=== PATIENT | female | born 1995 | race Caucasian/White ===

== ENCOUNTER 2016-04-25 12:26 | Observation (INO) | payer BC ==
[~2016-04-25] VITALS: Ht 157.5 cm; Wt 47.7 kg
[2016-04-25] MEDS ORDERED: OXYCODONE HCL IR 5 MG TAB (IMMEDIATE RELEASE) PO STA (13:52)
[2016-04-25] MEDS ORDERED: BCPILLS PO (14:00)
[2016-04-25] MEDS ORDERED: AMPH25CA PO (14:00)
--- NOTE | 2016-04-25 14:34 | DIAGNOSTIC IMAGING REPORT ---
SACRUM AND COCCYX 2 VIEWS CLINICAL HISTORY: Low back pain. No history of trauma. FINDINGS: AP and lateral views of the sacrum and coccyx are obtained. No prior studies are available for comparison at the time of dictation. The skeletal structures are well mineralized. No sacral or coccygeal fracture is seen. The sacroiliac joints are normal in appearance. The visualized bony pelvis appears intact. There is a nonobstructed abdominal bowel gas pattern. IMPRESSION: Unremarkable radiographic assessment of the sacrum and coccyx. Electronically signed by: Bear Mccrary M.D. 04/25/2016 2:33 PM Dictated Date/Time: 04/25/2016 2:32 PM
--- NOTE | 2016-04-25 14:35 | DIAGNOSTIC IMAGING REPORT ---
LUMBAR SPINE 5 VIEWS CLINICAL HISTORY: Low back pain. No trauma. FINDINGS: 5 views of the lumbar spine are obtained. No prior studies are available for comparison at the time of dictation. The skeletal structures are well mineralized. There is no radiographic evidence of fracture or malalignment. Vertebral body height and alignment are maintained. The transverse and spinous processes are intact. There is no evidence of spondylolysis. The intervertebral disc spaces are well-maintained. The visualized bony pelvis appears intact. There is a nonobstructed abdominal bowel gas pattern. IMPRESSION: Unremarkable radiographic evaluation of the lumbosacral spine. Electronically signed by: Bear Mccrary M.D. 04/25/2016 2:33 PM Dictated Date/Time: 04/25/2016 2:33 PM
[2016-04-25 14:37] LABS: URINE APPEARANCE CLEAR (CLEAR); URINE BILIRUBIN NEG (NEG); URINE COLOR DK YELLOW; URINE NITRITE NEG (NEG); URINE PH 5.5 (4.5-7.5); URINE SPECIFIC GRAVITY 1.028 (1.000-1.030); UROBILINOGEN NEG (NEG)
--- NOTE | 2016-04-25 14:38 | DIAGNOSTIC IMAGING REPORT ---
CHEST 2 VIEWS ROUTINE CLINICAL HISTORY: Fever and cough COMPARISON STUDY: No previous studies for comparison. FINDINGS: The cardiac and mediastinal contours are normal. There is no evidence of focal pulmonary consolidation. There is no evidence of failure. No pleural effusions are visualized.[ IMPRESSION: No active disease in the chest. Electronically signed by: Avni Mccray M.D. 04/25/2016 2:37 PM Dictated Date/Time: 04/25/2016 2:32 PM
[2016-04-25 14:47] LABS: MANUAL MICROSCOPIC REQUIRED? NO; REVIEW REQ? NO
[2016-04-25] MEDS ORDERED: KETOROLAC TROMETHAMINE 30 MG/ML VIAL IV STA (14:49)
[2016-04-25 15:20] LABS: BASO % 0.1 %; BASO ABS # 0.02 K/uL (0-0.2); COMPLETE YES; EOS % 0.4 %; HEMATOCRIT 38.8 % (37-47); IG% 0.2 %; LYMPH ABS # 2.25 K/uL (1.2-3.4); MEAN CELL VOLUME 91.9 fL (80-100); MEAN CORPUSCULAR HEMOGLOBIN 32.9 pg (25-34); MEAN CORPUSCULAR HGB CONC 35.8 g/dl (32-36); MEAN PLATELET VOLUME 9.3 fL (7.4-10.4); MONO % 6.6 %; NEUT % 81.7 %; PLATELET COUNT 297 K/uL (130-400); RED BLOOD COUNT 4.22 M/uL (4.2-5.4)
[2016-04-25] MEDS ORDERED: MoRPHine SULFATE 2 MG/ML CARP IV STA (15:30)
[2016-04-25] MEDS ORDERED: ONDANSETRON INJ 2 MG/ML 2 ML VIAL IV STA (15:30)
[2016-04-25] MEDS ORDERED: GUAIFENESIN SUGAR FREE 100 MG/5 ML UDC PO STA (15:30)
[2016-04-25 15:54] LABS: CALCIUM 8.9 mg/dl (8.5-10.1); POTASSIUM 3.8 mmol/L (3.5-5.1)
[2016-04-25 15:57] LABS: BUN/CREATININE RATIO 13.9 (10-20); CREATININE 0.69 mg/dl (0.60-1.20)
[2016-04-25 16:00] LABS: C-REACTIVE PROTEIN 6.48 mg/dl (0-0.29)
--- NOTE | 2016-04-25 18:29 | EMERGENCY ROOM VISIT NOTE ---
History Report prepared by Abram: Pepper Ricks Under the Supervision of: Dr. Bobby Brothers M.D. First contact with patient: 13:39 Chief Complaint: BACK PAIN Stated Complaint: SEVERE PAIN IN BACK NEAR TAILBONE History of Present Illness The patient is a 21 year old female who presents to the Emergency Room with complaints of persistent, worsening right lower back pain that began 2-3 days ago. She currently rates her discomfort as an 8/10 in severity describing it as a sharp pain. The patient states that for the past six weeks she has been battling bronchitis. She states that she has been on Augmentin and Prednisone for her cough, but states that her cough has persisted. The patient states that she finished both the antibiotic and steroids two weeks ago. She states that two-three days ago she developed pain to her lower back in the right tailbone area. The patient states that her pain has worsened with movement and coughing. She notes difficulty sleeping, because she cannot find a comfortable position. The patient denies any trauma or pain, numbness, or weakness down her legs. She denies any urinary symptoms, urinary incontinence, abdominal pain , chance of , abnormal vaginal discharge or bleeding, fever, or shortness of breath. The patient denies any history of back problems. She states that she took a muscle relaxer today without relief of her symptoms. The patient notes increased coughing at night. Source of History: patient Onset: 2-3 days ago Position: back (lower, right) Symptom Intensity: 8/10 Quality: sharp Timing: worsening, other (persistent) Associated Symptoms: + cough, No abdominal pain, No fevers, No numbness, No urinary symptoms, No weakness Note: Associated Symptoms: difficulty sleeping Review of Systems See HPI for pertinent positives & negatives. A total of 10 systems reviewed and were otherwise negative. Family History No pertinent family history stated. Social History Smoking Status: Never Smoker Marital Status: single Occupation Status: [employer] student Current/Historical Medications Scheduled Amphetamine-Dextroamphetamine 25MG (Adderall Xr 25MG), 25 MG PO DAILY Control Pills ( Control Pills), 1 TAB PO DAILY Allergies Coded Allergies: No Known Allergies (Unverified , 04/25/16) Physical Exam Vital Signs Date Time Temp Pulse Resp B/P Pulse Ox O2 Delivery O2 Flow Rate FiO2 04/25/16 16:46 99 20 127/77 97 Room Air 04/25/16 15:54 112 20 117/77 100 Room Air 04/25/16 14:32 114 18 126/74 97 Room Air 04/25/16 12:39 36.9 120 18 115/69 98 Room Air Physical Exam Constitutional: Vital signs reviewed. Pulse ox 98% on room air. Eyes: Pupils are equal round reactive to light. Conjunctiva are noninjected. ENT: Pharynx is clear without erythema or exudate. Mucous membranes are moist. Neck supple without meningeal signs. Respiratory: Clear to auscultation bilaterally. Breath sounds are equal bilaterally. Cardiovascular: Tachycardic. Heart rate 112. GI: Soft, nondistended and nontender. Bowel sounds are present. Musculoskeletal: Tenderness over right SI joint without any swelling, erythema, or increased warmth. No tenderness to the midline lumbar spine. No peripheral edema. No CVA tenderness. Integumentary: No cyanosis. Neurological: The patient is awake and alert. No focal deficits. Motor and sensation are intact throughout the lower extremities. Positive straight leg raise on the right side. Psychiatric: Normal affect. Medical Decision & Procedures ER Provider Diagnostic Interpretation: Other radiology results as stated below per my review and the radiologist's interpretation: X-ray results as stated below per interpretation by me and the radiologist: SACRUM AND COCCYX 2 VIEWS CLINICAL HISTORY: Low back pain. No history of trauma. FINDINGS: AP and lateral views of the sacrum and coccyx are obtained. No prior studies are available for comparison at the time of dictation. The skeletal structures are well mineralized. No sacral or coccygeal fracture is seen. The sacroiliac joints are normal in appearance. The visualized bony pelvis appears intact. There is a nonobstructed abdominal bowel gas pattern. IMPRESSION: Unremarkable radiographic assessment of the sacrum and coccyx. Electronically signed by: Bear Mccrary M.D. 04/25/2016 2:33 PM Dictated Date/Time: 04/25/2016 2:32 PM LUMBAR SPINE 5 VIEWS CLINICAL HISTORY: Low back pain. No trauma. FINDINGS: 5 views of the lumbar spine are obtained. No prior studies are available for comparison at the time of dictation. The skeletal structures are well mineralized. There is no radiographic evidence of fracture or malalignment. Vertebral body height and alignment are maintained. The transverse and spinous processes are intact. There is no evidence of spondylolysis. The intervertebral disc spaces are well-maintained. The visualized bony pelvis appears intact. There is a nonobstructed abdominal bowel gas pattern. IMPRESSION: Unremarkable radiographic evaluation of the lumbosacral spine. Electronically signed by: Bear Mccrary M.D. 04/25/2016 2:33 PM Dictated Date/Time: 04/25/2016 2:33 PM CHEST 2 VIEWS ROUTINE CLINICAL HISTORY: Fever and cough COMPARISON STUDY: No previous studies for comparison. FINDINGS: The cardiac and mediastinal contours are normal. There is no evidence of focal pulmonary consolidation. There is no evidence of failure. No pleural effusions are visualized.[ IMPRESSION: No active disease in the chest. Electronically signed by: Avni Mccray M.D. 04/25/2016 2:37 PM Dictated Date/Time: 04/25/2016 2:32 PM Laboratory Results 04/25/16 15:05 Red Blood Count 4.22, Mean Corpuscular Volume 91.9, Mean Corpuscular Hemoglobin 32.9, Mean Corpuscular Hemoglobin Concent 35.8, Mean Platelet Volume 9.3, Neutrophils (%) (Auto) 81.7, Lymphocytes (%) (Auto) 11.0, Monocytes (%) (Auto) 6.6, Eosinophils (%) (Auto) 0.4, Basophils (%) (Auto) 0.1, Neutrophils # (Auto) 16.74, Lymphocytes # (Auto) 2.25, Monocytes # (Auto) 1.35, Eosinophils # (Auto) 0.09, Basophils # (Auto) 0.02 04/25/16 15:05 Test 04/25/16 13:50 04/25/16 15:05 Urine Color DK YELLOW Urine Appearance CLEAR (CLEAR) Urine pH 5.5 (4.5-7.5) Urine Specific [place] 1.028 (1.000-1.030) Urine Protein NEG (NEG) Urine Glucose (UA) NEG (NEG) Urine Ketones TRACE (NEG) Urine Occult Blood NEG (NEG) Urine Nitrite NEG (NEG) Urine Bilirubin NEG (NEG) Urine Urobilinogen NEG (NEG) Urine Leukocyte Esterase NEG (NEG) Urine Test NEG (NEG) White Blood Count 20.50 K/uL (4.8-10.8) Red Blood Count 4.22 M/uL (4.2-5.4) Hemoglobin 13.9 g/dL (12.0-16.0) Hematocrit 38.8 % (37-47) Mean Corpuscular Volume 91.9 fL (80-100) Mean Corpuscular Hemoglobin 32.9 pg (25-34) Mean Corpuscular Hemoglobin Concent 35.8 g/dl (32-36) Platelet Count 297 K/uL (130-400) Mean Platelet Volume 9.3 fL (7.4-10.4) Neutrophils (%) (Auto) 81.7 % Lymphocytes (%) (Auto) 11.0 % Monocytes (%) (Auto) 6.6 % Eosinophils (%) (Auto) 0.4 % Basophils (%) (Auto) 0.1 % Neutrophils # (Auto) 16.74 K/uL (1.4-6.5) Lymphocytes # (Auto) 2.25 K/uL (1.2-3.4) Monocytes # (Auto) 1.35 K/uL (0.11-0.59) Eosinophils # (Auto) 0.09 K/uL (0-0.5) Basophils # (Auto) 0.02 K/uL (0-0.2) RDW Standard Deviation 42.9 fL (36.4-46.3) RDW Coefficient of Variation 12.7 % (11.5-14.5) Immature Granulocyte % (Auto) 0.2 % Immature Granulocyte # (Auto) 0.05 K/uL (0.00-0.02) Anion Gap 9.0 mmol/L (3-11) Est Creatinine Clear Calc Drug Dose 96.9 ml/min Estimated GFR () 144.2 Estimated GFR (Non- 124.4 BUN/Creatinine Ratio 13.9 (10-20) Calcium Level 8.9 mg/dl (8.5-10.1) C-Reactive Protein 6.48 mg/dl (0-0.29) Laboratory results as reviewed by me. Medications Administered Medications (Trade) Dose Ordered Sig/Simran Route Start Time Stop Time Status Last Admin Dose Admin Oxycodone HCl (Roxicodone Immediate Rel Tab) 5 mg NOW STAT PO 04/25/16 13:52 04/25/16 13:54 DC 04/25/16 13:59 5 MG Ketorolac Tromethamine (Toradol Inj) 15 mg NOW STAT IV 04/25/16 14:49 04/25/16 14:50 DC 04/25/16 15:05 15 MG Guaifenesin (Robitussin Sugar Free Syrup) 200 mg NOW STAT PO 04/25/16 15:30 04/25/16 15:33 DC 04/25/16 15:54 200 MG Morphine Sulfate (MoRPHine SULFATE INJ) 2 mg NOW STAT IV 04/25/16 15:30 04/25/16 15:33 DC 04/25/16 16:46 2 MG Ondansetron HCl (Zofran Inj) 4 mg NOW STAT IV 04/25/16 15:30 04/25/16 15:33 DC 04/25/16 16:46 4 MG ED Course 1342: The patient was evaluated in room C8. A complete history and physical exam was performed. 1352: Ordered Oxycodone HCl 5 mg PO. 1449: I reevaluated the patient and she is still having pain and is still tachycardic. Ordered Toradol Inj 15 mg IV. 1531: I reevaluated the patient and she is still having pain. She denies any history of IV drug use or ever being tested for HIV. The patient denies ever being sexually active without any barrier protection. She agrees to have an MRI. Medical Decision This is a 21-year-old female who presents with right low back pain. Differential diagnosis includes sacroiliitis, lumbar disc disease, radiculopathy , pathologic fracture, osteomyelitis, discitis. I did perform a limited focused review of portions of the patient's old chart on the electronic medical record. The patient has had no prior visits. I did evaluate the patient as noted above. The patient is presenting with right lower back pain for the past 2-3 days. She denies any injury. She is very tender over the right SI joint. She is neurologically intact and shows no signs of cauda equina syndrome. I initially treated her with oxycodone orally. A urine analysis and urine test were unremarkable. I did order and personally review the patient's chest x-ray, lumbar spine and sacrum x-rays as described above. There is no evidence of acute pathology. I did reassess the patient. She is still having significant pain and she remains tachycardic. Because the patient is tachycardic I did feel further workup was indicated. IV access was established. I did treat the patient with IV Toradol. I did order and review the patient's blood work as noted in the electronic medical record. Her white blood cell count is over 20,000. The patient denies any fevers. She denies any history of HIV or immunocompromise. She was on steroids but that was 2 weeks ago. She denies IV drug use. I did recommend MRI to rule out osteomyelitis or discitis. I did order an MRI of the lumbar spine and pelvis. The patient was given Robitussin to help with her cough. She was also given a small dose of morphine and Zofran IV prior to the MRI so she could stay still. The MRI is currently pending. The patient was signed out to Dr. Dorado. Impression Primary Impression: Low back pain Additional Impression: Leukocytosis Scribe Attestation The scribe's documentation has been prepared under my direct and personally reviewed by me in its entirety. I confirm that the note above accurately reflects all work, treatment, procedures, and medical decision making performed by me. Departure Information Dispostion Still a Patient Referrals No Doctor, Assigned (PCP) Patient Instructions My [facility] Problem Qualifiers
--- NOTE | 2016-04-25 19:00 | DIAGNOSTIC IMAGING REPORT ---
MRI pelvis/sacrum PELVIS COMBO CLINICAL HISTORY: right SI joint pain eval for osteo/abscess pain TECHNIQUE: Multi axial MRI acquisition COMPARISON STUDY: None FINDINGS: Normal study. Normal signal characteristics the osseous structures. Sacroiliac joints are symmetric. Sacral foramina are symmetric. No evidence for abnormal postcontrast enhancement. IMPRESSION: Normal study Electronically signed by: Andre Ortega M.D. 04/25/2016 6:59 PM Dictated Date/Time: 04/25/2016 6:56 PM
--- NOTE | 2016-04-25 19:05 | DIAGNOSTIC IMAGING REPORT ---
LUMBAR SPINE MRI WITH AND WITHOUT CONTRAST HISTORY: Right sacral pain right SI joint pain eval for osteo/abscess TECHNIQUE: Multiplanar multisequence MRI of the lumbar spine was performed both before and after the intravenous administration of contrast. COMPARISON: None. FINDINGS: For the purpose of the report the L5-S1 disc space will be located on axial image 27 of 30. Normal signal characteristics of the vertebral bodies, intervertebral discs, and paraspinal soft tissues L1-L2: No significant central canal or neural foraminal narrowing. L2-L3: No significant central canal or neural foraminal narrowing. L3-L4: No significant central canal or neural foraminal narrowing. L4-L5: No significant central canal or neural foraminal narrowing. L5-S1: No significant central canal or neural foraminal narrowing. IMPRESSION: Normal study Electronically signed by: Andre Ortega M.D. 04/25/2016 7:04 PM Dictated Date/Time: 04/25/2016 7:02 PM
[2016-04-25] MEDS ORDERED: SODIUM CHLORIDE 0.9% 500ML 500 ML IV STA (19:39)
[2016-04-25] MEDS ORDERED: SODIUM CHLORIDE 0.9% 1000ML 1,000 ML IV STA (19:39)
--- NOTE | 2016-04-25 19:51 | EMERGENCY ROOM VISIT NOTE ---
ED Visit Note First contact with patient: 18:29 I assumed care at the change of shift, MRIs of the pelvis and lumbar spine were pending. The MRIs have returned, no abscess or other pathology seen. The MRIs were essentially normal. The patient has a high white blood cell count. On exam, she is still tachycardic with a slight murmur. She's been sick for weeks. I do think a hospital stay is warranted, she has certainly failed outpatient treatment. I am somewhat concerned about endocarditis given her history and exam, I have ordered for blood cultures and a sedimentation rate. I have ordered for a Monospot. I did discuss the case with the on-call hospitalist. I talked to case management. I talked to the patient about her findings and results. The patient was ordered for IV saline and IV morphine. Diagnosis: Tachycardia. Right-sided back pain. Leukocytosis. Cardiac murmur.
[2016-04-25] MEDS: MoRPHine SULFATE 4 MG/ML 1 ML CARP\\VIAL IV PRN ×2 (20:19→21:58)
[2016-04-25] MEDS ORDERED: ONDANSETRON INJ 2 MG/ML 2 ML VIAL IV PRN (21:00)
[2016-04-25] MEDS ORDERED: ACETAMINOPHEN IV 100 ML IV PRN (21:00)
[2016-04-25] MEDS ORDERED: MoRPHine SULFATE 4 MG/ML 1 ML CARP\\VIAL IV PRN (21:00)
[2016-04-25] MEDS ORDERED: KETOROLAC TROMETHAMINE 30 MG/ML VIAL IV PRN (21:00)
[2016-04-25] MEDS ORDERED: ZOLPIDEM TARTRATE 5 MG TAB PO PRN (21:00)
[2016-04-25] MEDS ORDERED: MoRPHine SULFATE 2 MG/ML CARP IV PRN (21:00)
[2016-04-25] MEDS ORDERED: TRAMADOL HCL 50 MG TAB PO PRN ×2 (21:00)
[2016-04-25] MEDS ORDERED: LORAZEPAM 2 MG/ML 1 ML VIAL IV PRN (21:00)
[2016-04-25] MEDS ORDERED: ACETAMINOPHEN 325 MG TAB PO PRN (21:00)
[2016-04-25] MEDS ORDERED: DiphenhydrAMINE HCL 50 MG/ML VIAL IV PRN (21:00)
[2016-04-25] MEDS ORDERED: PROMETHAZINE HCL INJ 12.5 MG in SODIUM CHLORIDE 0.9% 50ML 50 ML IV PRN (21:00)
[2016-04-25] MEDS ORDERED: ACETAMINOPHEN IV PRN (21:15)
[2016-04-25] MEDS ORDERED: IV FLUIDS COMPLETED PRN (21:15)
[2016-04-25 22:01] VITALS: O2SAT 98
[2016-04-25] MEDS ORDERED: LORAZEPAM INJ 0.5 MG in SYRINGE 0.75 ML IV PRN (22:30)
[2016-04-25 23:45] VITALS: BMI 19.2
[2016-04-26 00:01] VITALS: BP 119/78; PULSE 87; TEMP 37.2; O2SAT 97
--- NOTE | 2016-04-26 00:40 | History and Physical ---
History & Physical Date & Time of Service: Apr 26, 2016 at 00:22 Chief Complaint: Leuokocytosis, Low Back Pain Primary Care Physician: No Doctor, Assigned History of Present Illness Source: patient The patient is 21-year-old female who presents emergency department with worsening lower right-sided back pain that began about 3 days prior to arrival. She began eval pending a bronchitis about 6 weeks ago, and was treated with Augmentin and prednisone. Her last dose of prednisone was 2 weeks ago, and her cough has persisted. She does have a known history of asthma, but is not routinely on inhalers. She reports that 2-3 days ago she developed pain in her right lower back area that is worse with movement and coughing, and reports that she has to curl her legs in toward herself when she coughs to keep it from hurting. The pain does not radiate down her legs, and she does not have loss of bowel or bladder control. She has no previous history of back problems, and there are no family history of back problems. She was seen at a local urgent care center today, and was given a muscle relaxer which she took without improvement. She denies any history of trauma. Social History Smoking Status: Never Smoker Smokeless Tobacco Use: No Alcohol Use: none Drug Use: none Marital Status: single Occupational Status: [employer] student Multi-Drug Resistant Organisms History of MDRO: No Allergies Coded Allergies: No Known Allergies (Unverified , 04/25/16) Home Medications Scheduled Amphetamine-Dextroamphetamine 25MG (Adderall Xr 25MG), 25 MG PO DAILY Control Pills ( Control Pills), 1 TAB PO DAILY Review of Systems The patient denies chest pain, palpitations, lower extremity swelling, vision change, hearing change, sore throat, fevers, chills, sweats, weight change, fatigue, nausea, vomiting, abdominal pain, pelvic pain, blood in urine or stool , dysuria, urinary frequency or urgency, lightheadedness, dizziness, headache, memory loss, rash, abnormal bruising or bleeding, imbalance, focal or generalized weakness, numbness or tingling in arms or legs, arthralgias or myalgias, neck pain, night sweats. The review of systems is otherwise negative other than for that already noted above, and at least 10 systems have been reviewed. Physical Exam Vital Signs Date Time Temp Pulse Resp B/P Pulse Ox O2 Delivery O2 Flow Rate FiO2 04/26/16 00:01 37.2 87 18 119/78 97 Room Air 04/25/16 22:01 95 20 128/63 98 Room Air 04/25/16 21:00 99 20 138/88 98 Room Air 04/25/16 19:04 95 20 124/89 100 Room Air 04/25/16 16:46 99 20 127/77 97 Room Air 04/25/16 15:54 112 20 117/77 100 Room Air 04/25/16 14:32 114 18 126/74 97 Room Air 04/25/16 12:39 36.9 120 18 115/69 98 Room Air The patient is awake, well-developed and adequately nourished, alert and oriented 3, normocephalic and atraumatic, lying in bed and in no acute distress. HEENT--PERRL, EOMI, mucous membranes and oropharynx moist. Neck--supple, no JVD or bruits, thyroid normal, trachea midline, no adenopathy. Heart--normal S1 and S2, no extra beats, no murmurs, rubs or gallops. Lungs--clear bilaterally but diminished throughout, no respiratory distress, no accessory muscle use. Abdomen--normal bowel sounds and soft, nontender and nondistended, no hernias or masses, no organomegaly. Extremities--no cyanosis, clubbing or edema. There are good distal pulses b/l. Dermatologic--normal skin turgor, normal color, warm and dry, no abnormal lymph nodes, no rash. Neurologic--cranial nerves II through XII grossly intact, motor and sensory examination normal. Rheumatologic--reproducible pain over right sacroiliac area and facet joint. Psychiatric--normal affect. Diagnostics Laboratory Results Results Past 24 Hours Test 04/25/16 13:50 04/25/16 15:05 Range/Units Urine Color DK YELLOW Urine Appearance CLEAR CLEAR Urine pH 5.5 4.5-7.5 Urine Specific [place] 1.028 1.000-1.030 Urine Protein NEG NEG Urine Glucose (UA) NEG NEG Urine Ketones TRACE NEG Urine Occult Blood NEG NEG Urine Nitrite NEG NEG Urine Bilirubin NEG NEG Urine Urobilinogen NEG NEG Urine Leukocyte Esterase NEG NEG Urine Test NEG NEG White Blood Count 20.50 4.8-10.8 K/uL Red Blood Count 4.22 4.2-5.4 M/uL Hemoglobin 13.9 12.0-16.0 g/dL Hematocrit 38.8 37-47 % Mean Corpuscular Volume 91.9 80-100 fL Mean Corpuscular Hemoglobin 32.9 25-34 pg Mean Corpuscular Hemoglobin Concent 35.8 32-36 g/dl Platelet Count 297 130-400 K/uL Mean Platelet Volume 9.3 7.4-10.4 fL Neutrophils (%) (Auto) 81.7 % Lymphocytes (%) (Auto) 11.0 % Monocytes (%) (Auto) 6.6 % Eosinophils (%) (Auto) 0.4 % Basophils (%) (Auto) 0.1 % Neutrophils # (Auto) 16.74 1.4-6.5 K/uL Lymphocytes # (Auto) 2.25 1.2-3.4 K/uL Monocytes # (Auto) 1.35 0.11-0.59 K/uL Eosinophils # (Auto) 0.09 0-0.5 K/uL Basophils # (Auto) 0.02 0-0.2 K/uL RDW Standard Deviation 42.9 36.4-46.3 fL RDW Coefficient of Variation 12.7 11.5-14.5 % Immature Granulocyte % (Auto) 0.2 % Immature Granulocyte # (Auto) 0.05 0.00-0.02 K/uL Erythrocyte Sedimentation Rate 20 0-21 mm/hr Sodium Level 139 136-145 mmol/L Potassium Level 3.8 3.5-5.1 mmol/L Chloride Level 104 98-107 mmol/L Carbon Dioxide Level 26 21-32 mmol/L Anion Gap 9.0 3-11 mmol/L Blood Urea Nitrogen 10 7-18 mg/dl Creatinine 0.69 0.60-1.20 mg/dl Est Creatinine Clear Calc Drug Dose 96.9 ml/min Estimated GFR () 144.2 Estimated GFR (Non- 124.4 BUN/Creatinine Ratio 13.9 10-20 Random Glucose 83 70-99 mg/dl Calcium Level 8.9 8.5-10.1 mg/dl C-Reactive Protein 6.48 0-0.29 mg/dl Monoscreen NEG NEG Microbiology Results 04/25/16 Blood Culture, Received Pending 04/25/16 Blood Culture, Received Pending Diagnostic Radiology Patient Name: NIKOLE ALCALA Unit Number: [id number] Dictated: 04/25/161431 Transcribed: 04/25/161431 EV Printed Date/Time: [~ rep prt dt]/[~ rep prt tm] [~ rep ct labl] - [~ rep ct ivnm] [facility] [place] [address] Dictated: 04/25/161431 Transcribed: 04/25/161431 EV Printed Date/Time: [~ rep prt dt]/[~ rep prt tm] [~ rep ct labl] - [~ rep ct ivnm] SACRUM AND COCCYX 2 VIEWS CLINICAL HISTORY: Low back pain. No history of trauma. FINDINGS: AP and lateral views of the sacrum and coccyx are obtained. No prior studies are available for comparison at the time of dictation. The skeletal structures are well mineralized. No sacral or coccygeal fracture is seen. The sacroiliac joints are normal in appearance. The visualized bony pelvis appears intact. There is a nonobstructed abdominal bowel gas pattern. IMPRESSION: Unremarkable radiographic assessment of the sacrum and coccyx. Electronically signed by: Bear Mccrary M.D. 04/25/2016 2:33 PM Dictated Date/Time: 04/25/2016 2:32 PM The status of this report is Signed. Draft = Not yet reviewed or approved by Radiologist. Signed = Reviewed and approved by Radiologist. <AttendingPhy></AttendingPhy> <FamilyPhy>No Doctor, Assigned</FamilyPhy> < PrimaryPhy>No Doctor, Assigned</PrimaryPhy> <UnitNumber>[id number]</UnitNumber> <VisitNumber>[id number]</VisitNumber> <PatientName>NIKOLE ALCALA</PatientName > <DateOfBirth>1995</DateOfBirth> <Location>[facility]</Location> <ServiceDate> 04/25/16</ServiceDate> <MNE>ESINDI</MNE> <OrderingPhy>[employer] MD</ OrderingPhy> <OrderingPhyMNE>f rep wilfrido stuart</OrderingPhyMNE> <DictatingPhyMNE> f rep dict dr stuart</DictatingPhyMNE> <CCListMNE>f rep ct mne</CCListMNE> < AdmittingPhyMNE>f pt admit dr stuart</AdmittingPhyMNE> <AttendingPhyMNE>f pt attend dr stuart</AttendingPhyMNE> <ConsultingPhyMNE>f pt consult dr stuart</ConsultingPhyMNE> <FamilyPhyMNE>f pt fam dr stuart</FamilyPhyMNE> <OtherPhyMNE>f pt other dr stuart</OtherPhyMNE> < PrimaryPhyMNE>f pt prim care dr stuart</PrimaryPhyMNE> <ReferringPhyMNE>f pt referring dr stuart</ReferringPhyMNE> Patient Name: NIKOLE ALCALA Unit Number: [id number] Dictated: 04/25/161432 Transcribed: 04/25/161432 EV Printed Date/Time: [~ rep prt dt]/[~ rep prt tm] [~ rep ct labl] - [~ rep ct ivnm] [facility] Radiology Department [place], [place] [id number] Dictated: 04/25/161432 Transcribed: 04/25/161432 EV Printed Date/Time: [~ rep prt dt]/[~ rep prt tm] [~ rep ct labl] - [~ rep ct ivnm] LUMBAR SPINE 5 VIEWS CLINICAL HISTORY: Low back pain. No trauma. FINDINGS: 5 views of the lumbar spine are obtained. No prior studies are available for comparison at the time of dictation. The skeletal structures are well mineralized. There is no radiographic evidence of fracture or malalignment. Vertebral body height and alignment are maintained. The transverse and spinous processes are intact. There is no evidence of spondylolysis. The intervertebral disc spaces are well-maintained. The visualized bony pelvis appears intact. There is a nonobstructed abdominal bowel gas pattern. IMPRESSION: Unremarkable radiographic evaluation of the lumbosacral spine. Electronically signed by: Bear Mccrary M.D. 04/25/2016 2:33 PM Dictated Date/Time: 04/25/2016 2:33 PM The status of this report is Signed. Draft = Not yet reviewed or approved by Radiologist. Signed = Reviewed and approved by Radiologist. <AttendingPhy></AttendingPhy> <FamilyPhy>No Doctor, Assigned</FamilyPhy> < PrimaryPhy>No Doctor, Assigned</PrimaryPhy> <UnitNumber>[id number]</UnitNumber> <VisitNumber>[id number]</VisitNumber> <PatientName>NIKOLE ALCALA</PatientName > <DateOfBirth>1995</DateOfBirth> <Location>[facility]</Location> <ServiceDate> 04/25/16</ServiceDate> <MNE>ESINDI</MNE> <OrderingPhy>[employer] MD</ OrderingPhy> <OrderingPhyMNE>f rep ord dr stuart</OrderingPhyMNE> <DictatingPhyMNE> f rep dict dr stuart</DictatingPhyMNE> <CCListMNE>f rep ct mne</CCListMNE> < AdmittingPhyMNE>f pt admit dr stuart</AdmittingPhyMNE> <AttendingPhyMNE>f pt attend dr stuart</AttendingPhyMNE> <ConsultingPhyMNE>f pt consult dr stuart</ConsultingPhyMNE> <FamilyPhyMNE>f pt fam dr stuart</FamilyPhyMNE> <OtherPhyMNE>f pt other dr stuart</OtherPhyMNE> < PrimaryPhyMNE>f pt prim care dr stuart</PrimaryPhyMNE> <ReferringPhyMNE>f pt referring dr stuart</ReferringPhyMNE> Patient Name: NIKOLE ALCALA Unit Number: [id number] Dictated: 04/25/161431 Transcribed: 04/25/161431 ARG Printed Date/Time: [~ rep prt dt]/[~ rep prt tm] [~ rep ct labl] - [~ rep ct ivnm] [facility] [place] [place] [address] Dictated: 04/25/161431 Transcribed: 04/25/161431 ARG Printed Date/Time: [~ rep prt dt]/[~ rep prt tm] [~ rep ct labl] - [~ rep ct ivnm] CHEST 2 VIEWS ROUTINE CLINICAL HISTORY: Fever and cough COMPARISON STUDY: No previous studies for comparison. FINDINGS: The cardiac and mediastinal contours are normal. There is no evidence of focal pulmonary consolidation. There is no evidence of failure. No pleural effusions are visualized.[ IMPRESSION: No active disease in the chest. Electronically signed by: Avni Mccray M.D. 04/25/2016 2:37 PM Dictated Date/Time: 04/25/2016 2:32 PM The status of this report is Signed. Draft = Not yet reviewed or approved by Radiologist. Signed = Reviewed and approved by Radiologist. <AttendingPhy></AttendingPhy> <FamilyPhy>No Doctor, Assigned</FamilyPhy> < PrimaryPhy>No Doctor, Assigned</PrimaryPhy> <UnitNumber>[id number]</UnitNumber> <VisitNumber>[id number]</VisitNumber> <PatientName>NIKOLE ALCALA</PatientName > <DateOfBirth>1995</DateOfBirth> <Location>[facility]</Location> <ServiceDate> 04/25/16</ServiceDate> <MNE>ESINDI</MNE> <OrderingPhy>[employer] MD</ OrderingPhy> <OrderingPhyMNE>f rep ord dr stuart</OrderingPhyMNE> <DictatingPhyMNE> f rep dict dr stuart</DictatingPhyMNE> <CCListMNE>f rep ct mne</CCListMNE> < AdmittingPhyMNE>f pt admit dr stuart</AdmittingPhyMNE> <AttendingPhyMNE>f pt attend dr stuart</AttendingPhyMNE> <ConsultingPhyMNE>f pt consult dr stuart</ConsultingPhyMNE> <FamilyPhyMNE>f pt fam dr stuart</FamilyPhyMNE> <OtherPhyMNE>f pt other dr stuart</OtherPhyMNE> < PrimaryPhyMNE>f pt prim care dr stuart</PrimaryPhyMNE> <ReferringPhyMNE>f pt referring dr stuart</ReferringPhyMNE> Patient Name: NIKOLE ALCALA Unit Number: [id number] Dictated: 04/25/161855 Transcribed: 04/25/161855 MS Printed Date/Time: [~ rep prt dt]/[~ rep prt tm] [~ rep ct labl] - [~ rep ct ivnm] [facility] [place] [place] [address] Dictated: 04/25/161855 Transcribed: 04/25/161855 MS Printed Date/Time: [~ rep prt dt]/[~ rep prt tm] [~ rep ct labl] - [~ rep ct ivnm] MRI pelvis/sacrum PELVIS COMBO CLINICAL HISTORY: right SI joint pain eval for osteo/abscess pain TECHNIQUE: Multi axial MRI acquisition COMPARISON STUDY: None FINDINGS: Normal study. Normal signal characteristics the osseous structures. Sacroiliac joints are symmetric. Sacral foramina are symmetric. No evidence for abnormal postcontrast enhancement. IMPRESSION: Normal study Electronically signed by: Andre Ortega M.D. 04/25/2016 6:59 PM Dictated Date/Time: 04/25/2016 6:56 PM The status of this report is Signed. Draft = Not yet reviewed or approved by Radiologist. Signed = Reviewed and approved by Radiologist. <AttendingPhy></AttendingPhy> <FamilyPhy>No Doctor, Assigned</FamilyPhy> < PrimaryPhy>No Doctor, Assigned</PrimaryPhy> <UnitNumber>[id number]</UnitNumber> <VisitNumber>[id number]</VisitNumber> <PatientName>NIKOLE ALCALA</PatientName > <DateOfBirth>1995</DateOfBirth> <Location>[facility]</Location> <ServiceDate> 04/25/16</ServiceDate> <MNE>ESINDI</MNE> <OrderingPhy>[employer] MD</ OrderingPhy> <OrderingPhyMNE>f rep ord dr stuart</OrderingPhyMNE> <DictatingPhyMNE> f rep dict dr stuart</DictatingPhyMNE> <CCListMNE>f rep ct mne</CCListMNE> < AdmittingPhyMNE>f pt admit dr stuart</AdmittingPhyMNE> <AttendingPhyMNE>f pt attend dr stuart</AttendingPhyMNE> <ConsultingPhyMNE>f pt consult dr stuart</ConsultingPhyMNE> <FamilyPhyMNE>f pt fam dr stuart</FamilyPhyMNE> <OtherPhyMNE>f pt other dr stuart</OtherPhyMNE> < PrimaryPhyMNE>f pt prim care dr stuart</PrimaryPhyMNE> <ReferringPhyMNE>f pt referring dr stuart</ReferringPhyMNE> Patient Name: NIKOLE ALCALA Unit Number: [id number] Dictated: 04/25/161901 Transcribed: 04/25/161901 MS Printed Date/Time: [~ rep prt dt]/[~ rep prt tm] [~ rep ct labl] - [~ rep ct ivnm] [facility] [place] [place] [address] Dictated: 04/25/161901 Transcribed: 04/25/161901 MS Printed Date/Time: [~ rep prt dt]/[~ rep prt tm] [~ rep ct labl] - [~ rep ct ivnm] [~ rep ct add3]] LUMBAR SPINE MRI WITH AND WITHOUT CONTRAST HISTORY: Right sacral pain right SI joint pain eval for osteo/abscess TECHNIQUE: Multiplanar multisequence MRI of the lumbar spine was performed both before and after the intravenous administration of contrast. COMPARISON: None. FINDINGS: For the purpose of the report the L5-S1 disc space will be located on axial image 27 of 30. Normal signal characteristics of the vertebral bodies, intervertebral discs, and paraspinal soft tissues L1-L2: No significant central canal or neural foraminal narrowing. L2-L3: No significant central canal or neural foraminal narrowing. L3-L4: No significant central canal or neural foraminal narrowing. L4-L5: No significant central canal or neural foraminal narrowing. L5-S1: No significant central canal or neural foraminal narrowing. IMPRESSION: Normal study Electronically signed by: Andre Ortega M.D. 04/25/2016 7:04 PM Dictated Date/Time: 04/25/2016 7:02 PM The status of this report is Signed. Draft = Not yet reviewed or approved by Radiologist. Signed = Reviewed and approved by Radiologist. <AttendingPhy></AttendingPhy> <FamilyPhy>No Doctor, Assigned</FamilyPhy> < PrimaryPhy>No Doctor, Assigned</PrimaryPhy> <UnitNumber>[id number]</UnitNumber> <VisitNumber>[id number]</VisitNumber> <PatientName>NIKOLE ALCALA</PatientName > <DateOfBirth>1995</DateOfBirth> <Location>[facility]</Location> <ServiceDate> 04/25/16</ServiceDate> <MNE>ESINDI</MNE> <OrderingPhy>[employer] MD</ OrderingPhy> <OrderingPhyMNE>f rep ord dr stuart</OrderingPhyMNE> <DictatingPhyMNE> f rep dict dr stuart</DictatingPhyMNE> <CCListMNE>f rep ct sandritae</CCListMNE> < AdmittingPhyMNE>f pt admit dr stuart</AdmittingPhyMNE> <AttendingPhyMNE>f pt attend dr stuart</AttendingPhyMNE> <ConsultingPhyMNE>f pt consult dr stuart</ConsultingPhyMNE> <FamilyPhyMNE>f pt fam dr stuart</FamilyPhyMNE> <OtherPhyMNE>f pt other dr stuart</OtherPhyMNE> < PrimaryPhyMNE>f pt prim care dr stuart</PrimaryPhyMNE> <ReferringPhyMNE>f pt referring dr stuart</ReferringPhyMNE> Impression Assessment and Plan Severe right low back pain in the area of right sacroiliac joint and lateral to facets, with normal x-rays, and MRI of lumbar spine and pelvis. The patient will be admitted to the medical floor, and we'll have her seen by orthopedics/ pain management in the a.m. For now we'll place on Toradol 30 mg IV every 6 hours when necessary, Voltaren gel to apply topically 4 times a day, tramadol 50 -100 mg by mouth every 4 hours when necessary, and morphine sulfate 2-4 mg IV every 2 hours when necessary. Leukocytosis/tachycardia/intermittent heart murmur/history of chronic bronchitic type infection--patient will get an echocardiogram with concern about the possibility of SBE. Blood cultures have been ordered, and she will not be placed on any antibiotics at this time. She will have duonebs available to use every 4 hours when necessary, and albuterol HFA 2 puffs qid prn. Level of Care Med/Surg Advanced Directives Existing Advance Directive: No Existing Living Will: No Existing Power of Ring Spinner: No Resuscitation Status FULL RESUSCITATION VTE Prophylaxis VTE Risk Assessment Done? Y/N: Yes Risk Level: Low Given or contraindicated: SCD's Social Service Consult None Apply
[2016-04-26] MEDS ORDERED: ALBUT/IPRATROP 3MG/0.5MG NEB 3 ML VIAL INH PRN (00:45)
[2016-04-26] MEDS ORDERED: ALBUTEROL HFA 8 GM INHALER INH PRN (00:45)
[2016-04-26] MEDS: DICLOFENAC SOD 1% GEL 100 GM TUBE EXT SCH ×3 (01:00→13:00)
[2016-04-26 02:14] VITALS: PULSE 93
[2016-04-26] MEDS: BENZONATATE 100MG CAP PO PRN ×2 (02:16→10:03)
[2016-04-26 02:32] VITALS: Ht 157.5 cm; Wt 47.7 kg
[2016-04-26 06:48] LABS: BASO % 0.3 %; BASO ABS # 0.03 K/uL (0-0.2); COMPLETE YES; HEMATOCRIT 32.9 % (37-47); IG% 0.3 %; LYMPH % 29.6 %; LYMPH ABS # 3.14 K/uL (1.2-3.4); MEAN CELL VOLUME 92.2 fL (80-100); MEAN CORPUSCULAR HEMOGLOBIN 31.9 pg (25-34); MEAN CORPUSCULAR HGB CONC 34.7 g/dl (32-36); MEAN PLATELET VOLUME 9.3 fL (7.4-10.4); MONO % 9.5 %; NEUT % 58.3 %; PLATELET COUNT 245 K/uL (130-400); RED BLOOD COUNT 3.57 M/uL (4.2-5.4); WHITE BLOOD COUNT 10.61 K/uL (4.8-10.8)
[2016-04-26 07:06] VITALS: BP 106/64; PULSE 90; TEMP 36.9; O2SAT 98
[2016-04-26 07:13] LABS: BLOOD UREA NITROGEN 9 mg/dl (7-18); BUN/CREATININE RATIO 16.4 (10-20); CARBON DIOXIDE 26 mmol/L (21-32); CHLORIDE 108 mmol/L (98-107); CREATININE 0.53 mg/dl (0.60-1.20); GLUCOSE 92 mg/dl (70-99); MAGNESIUM 2.1 mg/dl (1.8-2.4); POTASSIUM 3.8 mmol/L (3.5-5.1); SODIUM 142 mmol/L (136-145)
[2016-04-26] MEDS ORDERED: FLUTICASONE HFA 220 MCG INHALER INH ONE (10:49)
[2016-04-26] MEDS ORDERED: VLTG EXT (10:51)
[2016-04-26] MEDS ORDERED: AZIT250T PO (10:51)
[2016-04-26] MEDS ORDERED: FLVHFA110 INH (10:51)
[2016-04-26] MEDS ORDERED: PRVHFAIN INH (10:51)
[2016-04-26] MEDS ORDERED: AZITHROMYCIN 250 MG TAB PO ONE (11:00)
--- NOTE | 2016-04-26 11:09 | Discharge Instructions ---
Discharge Instructions Admission Reason for Admission: Leuokocytosis, Low Back Pain Discharge Discharge Diagnosis / Problem: prolonged asthma flare, biomechanical low back pain Discharge Goals Goal(s): Decrease discomfort, Improve disease control, Diagnostic testing, Therapeutic intervention Activity Recommendations Activity Limitations: resume your previous activity . Instructions / Follow-Up Instructions / Follow-Up a) asthma flare -it appears that this all started with a bad viral infection - most likely influenza given how sick you were/had fevers/when you got sick was right when flu was very prevalent - and that led to a flare of your asthma. frequently when people were asthmatic as a kid, and then get sick with something very inflammatory - they temporarily become a "worse" asthmatic than they normally are (as we discussed - it's like the flu bumped you "up the ladder" from being a mild intermittent asthmatic to a moderate persistent asthmatic) -- when this sort of thing happens, people usually get better faster if we manage the asthma more aggressively. for now we'll have you on flovent twice a day as an asthma suppressive medicine. as we discussed- try to use it twice a day every day until you get better. as you're getting better (coughing less, needing your rescue inhaler less) then you'll be able to reduce it to daily for a little while, and as you improve further, i'd expect you'll probably be able to stop it entirely in ~2-3 months. ideally your primary care doc (we're setting up locally for continuity) will guide you on it, but being young, healthy, and not used to needing to take a twice a day inhaler, it wouldn't surprise me if you "accidentally work your way out of it" as the cough fades and you remember to take it less and less -it's also quite probable that with the asthma and with the duration of illness you have an overgrowth of "atypical" bacteria (think: mycoplasma) -- these are not uncommon in situations like what's going on with you,and because they only live intracellular, they don't really show a "typical" pneumonia on chest Xray ( and frequently lungs will sound clear to exam). augmentin is a good antibiotic for "typical" lung infections - but won't really cover mycoplasma like bugs. to cover those, we'll switch to zithromax - it's commonly used and easy to take , but actually does a really good job of covering for those atypical bacteria. we rarely see resistance to antibiotics in atypicals, but think of something like doxycycline (similar effectiveness but has to be twice a day for 10 days instead of daily for 5) as a "backup plan" ----the "backup to the backup plan" would be looking at the sinuses - this is really only because you were more tender than i expected over your maxillary sinuses. that said, most sinus infections (bacterial or otherwise) get better without treatment, and treatment for a sinus infection would be a "bigger gun" antibiotic with far more potential for side effect - as we discussed, for now, just be aware that if a few weeks have gone by with the zithromax and flovent, and you're still not getting any better, chasing this from a sinusitis point of view might be necessary back pain -this appears biomechanical - in a very common pattern -your right piriformis muscle got spastic/tight (probably from continuous strain from coughing, made worse by the low grade inflammation and fatigue from being sick). once it got tight, it pulls your sacrum deep to the same side, jamming up your sacroiliac joint on the same side (causing the SI pain). muscle relaxants rarely work well because they act as "centrally acting muscle relaxants" that try to settle the part of your brain that tells muscles to relax - but the real problem with these sorts of muscle spasms lie in the nerves that tell the muscle how long "it's supposed to be" -- and when those nerves get irritated it makes the muscle too short - generating a pain signal that's analogous to the muscle being torn. -the stretches (specifically after doing the isometric contraction as we did together) - will help to relax that piriformis muscle. -use the diclofenac gel across the right prifiromis and SI joint 3-4 times a day until it gets better. -if you're not seeing fairly rapid improvement, your family doc might refer you to a good local chiropractor (Dr [place], Dr Ghotra are the two i use most often ) to keep working on the muscles to get things to relax. Current Hospital Diet Patient's current hospital diet: Regular Diet Discharge Diet Recommended Diet: Regular Diet Pending Studies Studies pending at discharge: yes List of pending studies: blood cultures are still pending but i expect them to be negative Medical Emergencies . Who to Call and When: Medical Emergencies: If at any time you feel your situation is an emergency, please call 911 immediately. . Non-Emergent Contact Non-Emergency issues call your: Primary Care Provider (we're setting you up with [facility] - [phone]) . . "Provider Documentation" section prepared by Adi Ramirez. VTE Core Measure Inpt VTE Proph given/why not?: SCD's
[2016-04-26 13:33] VITALS: BP 106/64; PULSE 90; TEMP 36.9; O2SAT 98
--- NOTE | 2016-04-26 20:40 | Discharge Summary ---
Discharge Summary Admission Date: Apr 25, 2016 at 20:57 Discharge Date: Apr 26, 2016 Procedures: LUMBAR SPINE MRI WITH AND WITHOUT CONTRAST HISTORY: Right sacral pain right SI joint pain eval for osteo/abscess TECHNIQUE: Multiplanar multisequence MRI of the lumbar spine was performed both before and after the intravenous administration of contrast. COMPARISON: None. FINDINGS: For the purpose of the report the L5-S1 disc space will be located on axial image 27 of 30. Normal signal characteristics of the vertebral bodies, intervertebral discs, and paraspinal soft tissues L1-L2: No significant central canal or neural foraminal narrowing. L2-L3: No significant central canal or neural foraminal narrowing. L3-L4: No significant central canal or neural foraminal narrowing. L4-L5: No significant central canal or neural foraminal narrowing. L5-S1: No significant central canal or neural foraminal narrowing. IMPRESSION: Normal study Electronically signed by: Andre Ortega M.D. 04/25/2016 7:04 PM Dictated Date/Time: 04/25/2016 7:02 PM MRI pelvis/sacrum PELVIS COMBO CLINICAL HISTORY: right SI joint pain eval for osteo/abscess pain TECHNIQUE: Multi axial MRI acquisition COMPARISON STUDY: None FINDINGS: Normal study. Normal signal characteristics the osseous structures. Sacroiliac joints are symmetric. Sacral foramina are symmetric. No evidence for abnormal postcontrast enhancement. IMPRESSION: Normal study Electronically signed by: Andre Ortega M.D. 04/25/2016 6:59 PM Dictated Date/Time: 04/25/2016 6:56 PM LUMBAR SPINE 5 VIEWS CLINICAL HISTORY: Low back pain. No trauma. FINDINGS: 5 views of the lumbar spine are obtained. No prior studies are available for comparison at the time of dictation. The skeletal structures are well mineralized. There is no radiographic evidence of fracture or malalignment. Vertebral body height and alignment are maintained. The transverse and spinous processes are intact. There is no evidence of spondylolysis. The intervertebral disc spaces are well-maintained. The visualized bony pelvis appears intact. There is a nonobstructed abdominal bowel gas pattern. IMPRESSION: Unremarkable radiographic evaluation of the lumbosacral spine. Electronically signed by: Bear Mccrary M.D. 04/25/2016 2:33 PM Dictated Date/Time: 04/25/2016 2:33 PM SACRUM AND COCCYX 2 VIEWS CLINICAL HISTORY: Low back pain. No history of trauma. FINDINGS: AP and lateral views of the sacrum and coccyx are obtained. No prior studies are available for comparison at the time of dictation. The skeletal structures are well mineralized. No sacral or coccygeal fracture is seen. The sacroiliac joints are normal in appearance. The visualized bony pelvis appears intact. There is a nonobstructed abdominal bowel gas pattern. IMPRESSION: Unremarkable radiographic assessment of the sacrum and coccyx. Electronically signed by: Bear Mccrary M.D. 04/25/2016 2:33 PM Dictated Date/Time: 04/25/2016 2:32 PM [~ rep ct add3]] CHEST 2 VIEWS ROUTINE CLINICAL HISTORY: Fever and cough COMPARISON STUDY: No previous studies for comparison. FINDINGS: The cardiac and mediastinal contours are normal. There is no evidence of focal pulmonary consolidation. There is no evidence of failure. No pleural effusions are visualized.[ IMPRESSION: No active disease in the chest. Electronically signed by: Avni Mccray M.D. 04/25/2016 2:37 PM Dictated Date/Time: 04/25/2016 2:32 PM Date/Time Source Procedure Growth Status 04/25/16 20:05 Blood Blood Culture - Preliminary NO GROWTH TO DATE. Resulted Last Resulted CBC 04/26/16 06:28 Red Blood Count 3.57, Mean Corpuscular Volume 92.2, Mean Corpuscular Hemoglobin 31.9, Mean Corpuscular Hemoglobin Concent 34.7, Mean Platelet Volume 9.3, Neutrophils (%) (Auto) 58.3, Lymphocytes (%) (Auto) 29.6, Monocytes (%) (Auto) 9.5, Eosinophils (%) (Auto) 2.0, Basophils (%) (Auto) 0.3, Neutrophils # (Auto) 6.19, Lymphocytes # (Auto) 3.14, Monocytes # (Auto) 1.01, Eosinophils # (Auto) 0.21, Basophils # (Auto) 0.03 Last Resulted BMP 04/26/16 06:28 Medication Reconciliation New Medications: Albuterol (Ventolin Hfa) 60 Puffs/5400 Mcg Aers 1 PUFF INH Q4 PRN for SOB/Wheezing, #1 INHALER Azithromycin (Zithromax) 250 Mg Tab 250 MG PO DAILY, #4 TAB Fluticasone Propionate (Flovent Hfa) 120 Puffs/24120 Mcg Aero 2 PUFFS INH BID for 30 Days, #1 INHALER 2 Refills Diclofenac Sod (Voltaren) 100 Appln/100 Gm Gel 1 APPLN EXT QID, #100 GM Continued Medications: Amphetamine-Dextroamphetamine 25MG (Adderall Xr 25MG) 1 Cap Cap 25 MG PO DAILY, CAP Control Pills ( Control Pills) Tab 1 TAB PO DAILY, TAB Discharge Exam msk/ost exam (no space in below PE mandel for this): -R anterior innominate, R piriformis region soft tissue high tone/tender/ decreased ROM, L on L sacral torsion - LAS and muscle energy - improved. asymmetry corrected some and pt tolerated well noted some improvement in pain. on return visit when mother present, re-did muscle energy and taught mother - pt tolerated well Physical Exam: General Appearance: no apparent distress (does have coughing fits and then appears to have some pain from low back w coughing fits) Eyes: EOMI ENT: hearing grossly normal Neck: trachea midline Respiratory/Chest: lungs clear, normal breath sounds, no respiratory distress, no accessory muscle use Cardiovascular: regular rate, rhythm Extremities: normal inspection Neurologic/Psychiatric: regional project manager II-XII nml as tested, alert, normal mood/affect Skin: normal color, warm/dry Hospital Course cough/asthma -time course is likely that initial infectious insult was flu or flu like illness - appears normally mild intermittent asthma at worst, but since infectious insult she's behaved more towards moderate persistent. d/w pt extensively and for the short term will treat as such - addition of flovent BID. ongoing use of albuterol prn sob/wheeze. in addition to that, sputum ongoing and purulent - now about 8wks since initial illness. treated w augmentin but not treated with anything that would cover atypicals. suspect w clear CXR, prolonged purulent sputum, and asthma, that she has secondary overgrowth of atypicals - zithromax. -outpt f/u at [facility] for continuity (she requests) - as she improves, anticipate ability to start to wean flovent either as atypical coverage clears infection, or as time lapses from initial insult (again likely flu). would expect with this that she'd likely be off flovent in ~3 months at the most -- if this is not the case then would want to investigate for ongoing inflammatory insults, consider pulmonary or allergy referral, or both (incidentally was surprisingly tender over maxillary sinuses b/l, L>R - we discussed this and decided against re-treat w gram negative coverage for sinuses since she was just on augmentin with no improvement, since most sinusitis type infections resolve without bacterial infection, since it was an incidental finding on exam rather than c/w a clinical picture of sinusitis, and since re treating for gram negatives in addition to having just been hospitalized would raise risk for complications such as Cdiff. however, if sinusitis picture "blossoms" then may need to consider treatment) low back pain -fit completely with lumbosacral strain pattern / sacral torsion/pelvic torsion type of pattern. pain entirely reproducible in this respect and did respond some to OMT. likely was brought on by repetitive strain of coughing combined with poor sleep. OMT, self-stretches (taught post-isometric relaxation to pt and then to mother) and voltaren gel across area of piriformis and SI joint somatic dysfunction - pelvic region - OMT as above ~1hr plus w pt excluding separate time doing OMT Total Time Spent: Greater than 30 minutes This includes examination of the patient, discharge planning, medication reconciliation, and communication with other providers. Discharge Instructions Please refer to the electronic Patient Visit Report (Discharge Instructions) for additional information. Follow-Up Dr Clarke next week and then ongoing until recovery to baseline health Additional Copies To Anne Clarke MD
[2016-04-26] MEDS ORDERED: FLUTICASONE HFA 220 MCG INHALER INH SCH (21:00)
== END 2016-04-26 14:25 | disposition home or self-care (01) ==
LOC: ENRESERVTM → ENRESERVDT → C.EDB 12:29 → UNDOADMOB 20:57 → C.MS2W 20:57
PROVIDERS: ADMIT Hospitalist; ATTEND Family Medicine
DX: M54.5 Low back pain (principal); D72.829 Elevated white blood cell count, unspecified; R00.0 Tachycardia, unspecified; J45.909 Unspecified asthma, uncomplicated; Z79.3 Long term (current) use of hormonal contraceptives